=== PATIENT | male | born 1995 | race African-American/Black ===

== ENCOUNTER 2017-09-12 06:37 | Observation (INO) ==
[2017-09-12] MEDS ORDERED: LACTATED RINGERS 1,000 ML IV STA (06:45)
[2017-09-12] MEDS ORDERED: DIPHTHERIA/TETANUS ADULT VACCINE 0.5 ML VIAL IM ONE (06:45)
[2017-09-12] MEDS ORDERED: DIPH/TET/ACEL PERT BOOSTER VACCINE 0.5 ML VIAL IM ONE (06:47)
[2017-09-12] MEDS ORDERED: ceFAZolin 1,000 MG VIAL ONE (06:47)
[2017-09-12] MEDS ORDERED: HYDROmorphone 2 MG/1 ML VIAL ONE (06:47)
[2017-09-12] MEDS ORDERED: HYDROmorphone 2 MG/1 ML VIAL IV STA (06:49)
[2017-09-12 07:09] LABS: Basophils # 0.1 10*3/uL (0.0-0.2); Basophils % 0.6 % (0.0-0.8); Eosinophils # 0.1 10*3/uL (0.0-0.87); Eosinophils % 0.9 % (0.00-10.9); Hematocrit 43.3 VOL% (42.0-52.0); Hemoglobin 14.7 GM/DL (14.0-18.0); Immature Granulocytes % 0.4 %; Immature Granulocytes Absolute 0.05 #; Lymphocytes # 3.4 10*3/uL (1.4-4.0); Lymphocytes % 29.4 % (21.2-54.2); Mean Corpuscular HGB Conc 33.9 GM/DL (32-36); Mean Corpuscular Hemoglobin 30 PG (27-34); Mean Corpuscular Volume 88.7 FL (87-102); Mean Platelet Volume 9.5 FL (9.6-12.0); Monocytes # 0.6 10*3/uL (0.11-0.8); Monocytes % 5.4 % (1.7-12.7); Neutrophils # 7.3 10*3/uL (1.4-7.4); Neutrophils % 63.3 % (38.7-73.9); Platelet Count 233 T/CUMM (130-400); Red Blood Count 4.88 MC/CUMM (3.8-5.5); Red Cell Distribution Width 13.5 % (9.3-17.3); White Blood Count 11.6 T/CUMM (4-12)
[2017-09-12 07:20] LABS: INR 1.2; PT Patient Result 12.5 SECS; Partial Thromboplastin Time 23.1 SECS (0-40)
[2017-09-12] MEDS ORDERED: ONDANSETRON 4 MG/2 ML VIAL IV PRN (07:29)
[2017-09-12] MEDS ORDERED: ACETAMINOPHEN 325 MG TABLET PO PRN (07:29)
[2017-09-12 07:32] LABS: Alanine Aminotransferase 15 U/L (16-61); Albumin 3.9 G/DL (3.4-5.0); Alkaline Phosphatase 69 U/L (45-117); Amylase 79 U/L (25-115); Aspartate Amino Transferase 24 U/L (0-37); Blood Urea Nitrogen 8 MG/DL (7-18); Glucose 129 MG/DL (74-106); Osmolality,Calculated 272.8 MOS/KG (273-304); Potassium 3.6 MMOL/L (3.5-5.1); Sodium 137 MMOL/L (136-145); Total Protein 8.5 G/DL (6.4-8.3)
[2017-09-12 07:33] LABS: Lactic Acid 2.4 MMOL/L (0.4-2.0)
[2017-09-12 08:15] LABS: Barbiturates Screen,Urine Negative (Negative); Benzodiazepines Screen,Urine Negative (Negative); Cannabinoid Screen,Urine Positive (Negative); Opiate Screen,Urine Negative (Negative); Phencyclidine Screen,Urine Negative (Negative)
[2017-09-12] MEDS: ceFAZolin 1,000 MG in SYRINGE 1 EACH IV SCH ×3 (10:18→23:54)
[2017-09-12] MEDS: PANTOPRAZOLE 40 MG TABLET PO SCH (10:19)
[2017-09-12 11:43] LABS: Apearance,Urine CLEAR (Clear); Bilirubin,Urine Negative (Negative); Blood, Urine Negative (Negative); Glucose,Urine (UA) Negative (Negative); Ketones,Urine 5 mg/dL (Negative); Nitrite,Urine Negative (Negative); Protein,Urine Negative; RBC,Urine <1 /HPF (0-4); Urine Color Colorless (Yellow); Urine Specific Gravity 1.012 (1.001-1.035); Urine Urobilinogen < 2.0 EU/DL (0.2-1.0); WBC,Urine <1 /HPF (0-6)
[2017-09-12] MEDS: MORPHINE 2 MG/1 ML SYRINGE IV PRN ×2 (16:34→23:59)
[2017-09-13] MEDS: PANTOPRAZOLE 40 MG TABLET PO SCH (08:33)
[2017-09-13] MEDS: ceFAZolin 1,000 MG in SYRINGE 1 EACH IV SCH (08:34)
[2017-09-13 09:40] LABS: Basophils # 0.1 10*3/uL (0.0-0.2); Basophils % 1.3 % (0.0-0.8); Eosinophils # 0.1 10*3/uL (0.0-0.87); Eosinophils % 1.5 % (0.00-10.9); Immature Granulocytes % 0.2 %; Immature Granulocytes Absolute 0.01 #; Lymphocytes # 1.7 10*3/uL (1.4-4.0); Lymphocytes % 27.7 % (21.2-54.2); Mean Corpuscular HGB Conc 34.2 GM/DL (32-36); Mean Corpuscular Hemoglobin 30 PG (27-34); Mean Corpuscular Volume 88.6 FL (87-102); Mean Platelet Volume 9.8 FL (9.6-12.0); Monocytes # 0.7 10*3/uL (0.11-0.8); Monocytes % 11.3 % (1.7-12.7); Neutrophils # 3.5 10*3/uL (1.4-7.4); Platelet Count 209 T/CUMM (130-400); Red Blood Count 4.29 MC/CUMM (3.8-5.5); Red Cell Distribution Width 13.6 % (9.3-17.3)
[2017-09-13 12:30] VITALS: BP 129/65
== END 2017-09-13 13:52 | disposition home or self-care (01) ==
LOC: EDBD → EDUNIT# → N.ED 06:37 → N.EDINP 06:37 → N.3E 09:41
PROVIDERS: ADMIT Surgery; ATTEND Surgery